=== PATIENT | male | born 1950 | race Caucasian/White ===

== ENCOUNTER → 2017-05-22 | Outpatient (CLI) | payer OTHER ==
[~2017-05-22] MED LIST: MULT-506 PO; PRLSR20 PO; allegra PO
== END | disposition home or self-care (01) ==
LOC: C.PATHSPEC 17:14
PROVIDERS: ATTEND Urology
DX: N40.0 Benign prostatic hyperplasia without lower urinary tract symptoms (principal)

== ENCOUNTER → 2017-09-30 | Outpatient (CLI) | payer OTHER, MEDICARE ==
[2017-09-30 12:57] LABS: BASO % 0.3 %; BASO ABS # 0.02 K/uL (0-0.2); COMPLETE YES; EOS % 2.2 %; HEMATOCRIT 44.1 % (42-52); IG% 0.1 %; LYMPH % 27.4 %; LYMPH ABS # 1.97 K/uL (1.2-3.4); MEAN CELL VOLUME 89.3 fL (80-100); MEAN CORPUSCULAR HEMOGLOBIN 29.4 pg (25-34); MEAN CORPUSCULAR HGB CONC 32.9 g/dl (32-36); MEAN PLATELET VOLUME 10.5 fL (7.4-10.4); MONO % 7.9 %; NEUT % 62.1 %; PLATELET COUNT 210 K/uL (130-400); RED BLOOD COUNT 4.94 M/uL (4.7-6.1)
[2017-09-30 13:06] LABS: ALT/SGPT 22 U/L (12-78); BLOOD UREA NITROGEN 12 mg/dl (7-18); BUN/CREATININE RATIO 8.8 (10-20); CALCIUM 8.9 mg/dl (8.5-10.1); CARBON DIOXIDE 30 mmol/L (21-32); CHLORIDE 104 mmol/L (98-107); CHOLESTEROL 197 mg/dl (0-200); CREATININE 1.33 mg/dl (0.60-1.40); GLUCOSE 96 mg/dl (70-99); POTASSIUM 4.3 mmol/L (3.5-5.1); SODIUM 139 mmol/L (136-145); TRIGLYCERIDES 83 mg/dl (0-150); VERY LOW DENSITY LIPOPROT CALC 17 mg/dl
[2017-09-30 13:17] LABS: ALB/GLOB RATIO 0.9 (0.9-2); ALKALINE PHOSPHATASE 71 U/L (45-117); AST/SGOT 18 U/L (15-37); CHOLESTEROL/HDL RATIO 4.3; HDL CHOLESTEROL 46 mg/dl; LDL CHOLESTEROL CALCULATED 134 mg/dl
== END | disposition home or self-care (01) ==
LOC: C.LABMFLN 10:23
PROVIDERS: ATTEND Physician Assistant
DX: Z00.00 Encounter for general adult medical examination without abnormal findings (principal); N40.0 Benign prostatic hyperplasia without lower urinary tract symptoms; E78.5 Hyperlipidemia, unspecified; K21.9 Gastro-esophageal reflux disease without esophagitis

== ENCOUNTER → 2017-11-13 | Outpatient (CLI) | payer OTHER, MEDICARE | END | disposition home or self-care (01) | LOC: C.PATHSPEC 10:53 | PROVIDERS: ATTEND Urology | DX: C67.9 Malignant neoplasm of bladder, unspecified (principal) ==

== ENCOUNTER → 2017-12-29 | Outpatient (CLI) | payer OTHER, MEDICARE | LOC: C.LABSPEC 16:55 | PROVIDERS: ATTEND Urology | DX: N39.0 Urinary tract infection, site not specified (principal) ==

== ENCOUNTER → 2018-01-28 | Outpatient (CLI) | payer OTHER, MEDICARE ==
[2018-01-28 12:46] LABS: BASO % 0.2 %; BASO ABS # 0.02 K/uL (0-0.2); EOS % 1.4 %; EOS ABS # 0.12 K/uL (0-0.5); HEMATOCRIT 39.2 % (42-52); HEMOGLOBIN 12.9 g/dL (14.0-18.0); IG# 0.02 K/uL (0.00-0.02); LYMPH ABS # 1.62 K/uL (1.2-3.4); MEAN CELL VOLUME 88.7 fL (80-100); MEAN CORPUSCULAR HEMOGLOBIN 29.2 pg (25-34); MEAN CORPUSCULAR HGB CONC 32.9 g/dl (32-36); MEAN PLATELET VOLUME 9.9 fL (7.4-10.4); NEUT % 72.2 %; NEUT ABS # 6.15 K/uL (1.4-6.5); PLATELET COUNT 270 K/uL (130-400); RED CELL DISTRIBUTION WIDTH CV 13.8 % (11.5-14.5); WHITE BLOOD COUNT 8.53 K/uL (4.8-10.8)
[2018-01-28 12:58] LABS: ALBUMIN 3.1 gm/dl (3.4-5.0); ALT/SGPT 17 U/L (12-78); BLOOD UREA NITROGEN 18 mg/dl (7-18); CALCIUM 8.5 mg/dl (8.5-10.1); CARBON DIOXIDE 25 mmol/L (21-32); CREATININE 1.15 mg/dl (0.60-1.40); GLUCOSE 107 mg/dl (70-99); SODIUM 139 mmol/L (136-145)
[2018-01-28 13:12] LABS: ALKALINE PHOSPHATASE 75 U/L (45-117); AST/SGOT 17 U/L (15-37); TOTAL PROTEIN 7.5 gm/dl (6.4-8.2)
[2018-01-30 20:14] LABS: ANA SCREEN TC 249X NEGATIVE (NEGATIVE)
== END | disposition home or self-care (01) ==
LOC: C.LABMFLN 07:50
PROVIDERS: ATTEND Family Medicine
DX: M25.50 Pain in unspecified joint (principal)

== ENCOUNTER → 2018-02-12 | Outpatient (CLI) | payer OTHER, MEDICARE ==
--- NOTE | 2018-02-12 10:12 | DIAGNOSTIC IMAGING REPORT ---
R HAND MIN 3 VIEWS ROUTINE CLINICAL HISTORY: Right hand pain COMPARISON: None. DISCUSSION: The bony mineralization is normal. There are osteoarthritic changes most pronounced the level of the third metacarpal phalangeal joint. There is no erosive disease. There are no fractures. IMPRESSION: 1. Osteoarthritic changes 2. No fractures 3. No evidence of erosive disease. Electronically signed by: Hipolito Arellano M.D. 02/12/2018 10:11 AM Dictated Date/Time: 02/12/2018 10:10 AM
--- NOTE | 2018-02-12 10:14 | DIAGNOSTIC IMAGING REPORT ---
L HAND MIN 3 VIEWS ROUTINE CLINICAL HISTORY: Elevated sedimentation rate. Inflammatory polyarthritis. COMPARISON: None FINDINGS: Alignment of left hand is anatomic. No fracture or suspicious lesion is identified. No erosions are identified. There is mild joint space narrowing and osteophytosis within multiple articulations of the left hand. IMPRESSION: 1. 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 2. No radiographic evidence of an erosive/inflammatory arthropathy. Electronically signed by: Don Holt M.D. 02/12/2018 10:13 AM Dictated Date/Time: 02/12/2018 10:12 AM
[2018-02-12 12:32] LABS: TRANSFERRIN 228 mg/dl (200-360)
[2018-02-16 06:29] LABS: ANA SCREEN TC 249X POSITIVE (NEGATIVE); ANTI-SS-A <1.0 NEG AI (<1.0 NEG); ANTI-SS-B <1.0 NEG AI (<1.0 NEG); COMPLEMENT C3 TC 44859W 135 MG/DL (90-180); COMPLEMENT C4 TC 44982E 47 MG/DL (16-47); PARVOVIRUS IgM INDEX 0.2 (<0.9)
[2018-02-16 14:29] LABS: ANA TITER 1:40 TITER (<1:40)
== END | disposition home or self-care (01) ==
LOC: C.RAD1850 09:36
PROVIDERS: ATTEND Internal Medicine Rheumatology
DX: R70.0 Elevated erythrocyte sedimentation rate (principal); K21.9 Gastro-esophageal reflux disease without esophagitis; M06.4 Inflammatory polyarthropathy; M17.0 Bilateral primary osteoarthritis of knee; M19.041 Primary osteoarthritis, right hand; M19.042 Primary osteoarthritis, left hand

== ENCOUNTER → 2018-03-30 | Outpatient (CLI) | payer OTHER, MEDICARE | END | disposition home or self-care (01) | LOC: C.LABMFLN 07:35 | PROVIDERS: ATTEND Family Medicine | DX: R70.0 Elevated erythrocyte sedimentation rate (principal); K21.9 Gastro-esophageal reflux disease without esophagitis; M06.4 Inflammatory polyarthropathy ==

== ENCOUNTER → 2018-06-08 | Outpatient (CLI) | payer OTHER, MEDICARE | END | disposition home or self-care (01) | LOC: C.LABMFLN 08:01 | PROVIDERS: ATTEND Internal Medicine Rheumatology | DX: M06.4 Inflammatory polyarthropathy (principal); M35.3 Polymyalgia rheumatica; Z15.89 Genetic susceptibility to other disease; Z79.52 Long term (current) use of systemic steroids ==